=== PATIENT | female | born 1970 | race Caucasian/White ===

== ENCOUNTER → 2018-05-17 | Emergency (ER) | payer OTHER ==
[~2018-05-17] VITALS: Ht 154.9 cm; Wt 54.4 kg
[~2018-05-17] MED LIST: CEPHALEXIN500 MG PO; KEFLEX500 MG PO; NORCO 5-325 TA1 EACH PO; ZOFRAN ODT4 MG PO
--- OUTSIDE RECORDS SUMMARY | ~2018-05-17 | XMS | Clinical Summary ---
Demographics + + + | Address | [address] | | | [place] [address] | + + + | Home Phone | | + + + | Preferred Language | Unknown | + + + | Marital Status | | + + + | Catholic Affiliation | Unknown | + + + | Race | Unknown | + + + | Ethnic Group | Unknown | + + + Author + + + | Author | [facility] | | | and [place] | + + + | Organization | [facility] | | | and [place] | + + + | Address | Unknown | + + + | Phone | Unavailable | + + + Support + + + + + | Name | Relationship | Address | Phone | + + + + + | Rambo Garza | ECON | [address] | | | | | [place] | | | | | [address] | | + + + + + Care Team Providers + +------+ + | Care Tag Marker Name | Role | Phone | + +------+ + | Don Chau [employer]IDENT [employer] | PP | | + +------+ + Allergies + + + +--------+ + | Active Allergy | Reactions | Severity | Noted | Comments | | | | | Date | | + + + +--------+ + | Doxycycline | Sensitivity | High | | Rash from sun | | | | | | exposure | + + + +--------+ + Current Medications + + +--------+---------+------+------+-------+ | Prescription | Sig. | Disp. | Refills | Star | End | Statu | | | | | | t | Date | s | | | | | | Date | | | + + +--------+---------+------+------+-------+ | triamcinolone | APPLY TO AFFECTED | 30 g | 0 | 06/3 | | Activ | | (KENALOG) 0.1% cream | AREAS OF SKIN THREE | | | 0/20 | | e | | | TIMES DAILY FOR | | | 16 | | | | | ITCHING OR | | | | | | | | INFLAMMATION | | | | | | + + +--------+---------+------+------+-------+ | | Take 1 tablet by | 30 | 0 | 10/1 | | Activ | | butalbital-acetamino | mouth every 6 hours | tablet | | 2/20 | | e | | phen-caffeine | as needed for | | | 17 | | | | (ESGIC) 50-325-40 mg | Headaches. | | | | | | | per tablet | | | | | | | + + +--------+---------+------+------+-------+ | ondansetron | Take 1 tablet by | 30 | 0 | 10/1 | | Activ | | (ZOFRAN ODT) 4 mg | mouth every 8 hours | tablet | | 2/20 | | e | | disintegrating | as needed. | | | 17 | | | | tablet | | | | | | | + + +--------+---------+------+------+-------+ | omeprazole | Take 20 mg by mouth | | | 11/2 | | Activ | | (PRILOSEC) 20 mg | every morning | | | 2/20 | | e | | capsule | (before breakfast). | | | 17 | | | + + +--------+---------+------+------+-------+ | fluticasone | 2 sprays by Nasal | 1 g | 1 | 08/3 | | Activ | | (FLONASE) 50 | route Daily. | | | 1/20 | | e | | mcg/nasal spray | | | | 18 | | | + + +--------+---------+------+------+-------+ Active Problems + + + | Problem | Noted Date | + + + | Gastroesophageal reflux disease | 05/30/2017 | + + + | History of opioid abuse | 05/30/2017 | + + + + + | Overview: Overview: Currently [facility] | | Dr. 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 | | + + + | Vitamin D deficiency | | + + + Encounters +--------+ + + + + | Date | Type | Specialty | Care Team | Description | +--------+ + + + + | 03/11/ | Telephone | | Linh Edwards | Results | | 2017 | | | [facility] | | +--------+ + + + + | 03/08/ | Office | | Pat Duong | Viral illness | | 2017 | Visit | | [facility] | (Primary Dx); | | | | | | Pharyngitis, | | | | | | unspecified | | | | | | etiology; Sore | | | | | | throat | +--------+ + + + + from Last 3 Months Immunizations + + + + | Name | Dates Previously Given | Next Due | + + + + | INFLUENZA PF 4Y OR | 04/27/2016, 05/12/2015 | | | >,QUAD DERIVED FROM | | | | TISS-CULT | | | + + + + | TDAP, (ADOL/ADULT) | 11/24/2011 | | + + + + Family History + + +------+ + | Medical History | Relation | Name | Comments | + + +------+ + | High blood pressure | Father | | | + + +------+ + | High blood pressure | Mother | | | + + +------+ + + +------+--------+ + | Relation | Name | Status | Comments | + +------+--------+ + | Father | | | | + +------+--------+ + | Mother | | | | + +------+--------+ + Social History + + + +--------+ + | Tobacco Use | Types | Packs/Day | Years | Date | | | | | Used | | + + + +--------+ + | Current Every Day | Cigarettes | 0.2 | | Started: 1986 | | Smoker | | | | | + + + +--------+ + + +---+---+---+ | Smokeless Tobacco: | | | | | Never Used | | | | + +---+---+---+ + + | Tobacco Cessation: Ready to Quit: No; Counseling Given: No | | Comments: Smokes 2-3 cigarrettes per day | + + + + +---------+ + | Alcohol Use | Drinks/We | oz/Week | Comments | | | ek | | | + + +---------+ + | Yes | 0 | 0.0 | 1-2 times per year | | | Standard | | | | | drinks or | | | | | | | | | | equivalen | | | | | t | | | + + +---------+ + + + + | Sex Assigned at | Date Recorded | | | | + + + | Not on file | | + + + Last Filed Vital Signs + + + + | Vital Sign | Reading | Time Taken | + + + + | Blood Pressure | 110/70 | 03/08/20181739 PDT | + + + + | Pulse | 66 | 03/08/20181739 PDT | + + + + | Temperature | 36.9 C (98.4 F) | 03/08/20181739 PDT | + + + + | Respiratory Rate | 16 | 03/08/20181739 PDT | + + + + | Oxygen Saturation | 97% | 03/08/20181739 PDT | + + + + | Inhaled Oxygen | - | - | | Concentration | | | + + + + | Weight | 53.5 kg (118 lb) | 03/08/20181739 PDT | + + + + | Height | 154.9 cm (5' 1") | 03/08/20181739 PDT | + + + + | Body Mass Index | 22.3 | 03/08/20181739 PDT | + + + + Plan of Treatment + + + + + | Health Maintenance | Due Date | Last Done | Comments | + + + + + | Vaccine: | | | | | Pneumococcal 19- | 0 | | | | (PPSV23 only) Medium | | | | | Risk (1 of 1 - | | | | | PPSV23) | | | | + + + + + | Cervical Cancer | | | | | Screening (Pap) | 1 | | | + + + + + | Vaccine: Influenza | | 04/27/2016, 05/12/2015 | | | (#1) | 8 | | | + + + + + | Vaccine: | | 11/24/2011 | | | Dtap/Tdap/Td (2 - | 2 | | | | Td) | | | | + + + + + Procedures + +--------+ + + + | Procedure Name | Priori | Date/Time | Associated Diagnosis | Comments | | | ty | | | | + +--------+ + + + | POCT STREPTOCOCCUS A | Routin | 03/08/2018 | Sore throat | Results for this | | NAAT | e | 1807 PDT | | procedure are in the | | | | | | results section. | + +--------+ + + + | CULTURE, STREP A, | Routin | 03/08/2018 | Pharyngitis, | Results for this | | THROAT | e | 1740 PDT | unspecified etiology | procedure are in the | | | | | | results section. | + +--------+ + + + from Last 3 Months Results POCT Streptococcus A NAAT (03/08/2018 1807) + + + + + | Component | Value | Ref Range | Performed At | + + + + + | Group A Strep, DNA | Negative | Negative | | | POC | | | | + + + + + | Internal QC | Acceptable | Acceptable | | + + + + + | CULTURE SENT TO LAB | Yes | | | + + + + + Culture, Strep A, Throat (03/08/2018 1740) + + + + + | Component | Value | Ref Range | Performed At | + + + + + | Culture | No Group A Streptococcus | | [facility] | | | isolated | | [facility] | | | | | CENTER - | | | | | LABORATORY | + + + + + + + | Specimen | + + | Tissue - Oropharynx | + + + + + + + | Performing | Address | City/State/Zipcode | Phone Number | | Organization | | | | + + + + + | [facility] | [address] | [place] | [phone] | | [facility] | | [address] | | | - LABORATORY | | | | + + + + + | [facility] | [address] | [place] | | | [facility] | | [address] | | | - LABORATORY | | | | + + + + + from Last 3 Months Insurance + +--------+ +--------+ +---------+ | Payer | Benefi | Subscriber | Type | Phone | Address | | | t Plan | ID | | | | | | / | | | | | | | Group | | | | | + +--------+ +--------+ +---------+ | [employer] | MODA | [id number] | Medica | +- | | | MEDICAID HMO | HEALTH | | id | 9821 | | | | [place] | | | | | | [place] | | | | | + +--------+ +--------+ +---------+ + +--------+ +--------+ + + | Guarantor Name | Accoun | Relation to | Date | Phone | Billing Address | | | t Type | Patient | of | | | | | | | | | | + +--------+ +--------+ + + | MITZI EAGLE | Person | Self [birth year] Home: | [address] | | [place] | al/Fam | | 1969 | [phone] | [place] | | | lisa | | | [phone] | [phone] | + +--------+ +--------+ + +
--- OUTSIDE RECORDS SUMMARY | ~2018-05-17 | XMS | Encounter Summary ---
Demographics + + + | Address | [address] | | | [place] [address] | + + + | Home Phone | | + + + | Preferred Language | Unknown | + + + | Marital Status | | + + + | Alevism Affiliation | Unknown | + + + | Race | Unknown | + + + | Ethnic Group | Unknown | + + + Author + + + | Author | [facility] | | | and [place] | + + + | Organization | [facility] | | | and [place] | + + + | Address | Unknown | + + + | Phone | Unavailable | + + + Support + + + + + | Name | Relationship | Address | Phone | + + + + + | Rambo Garza | ECON | [address] | | | | | [place] | | | | | [address] | | + + + + + Care Team Providers + +------+ + | Care Testing Machine Operator Name | Role | Phone | + +------+ + | Don Chau GEOSPATIAL INFORMATION SCIENTIST | PCP | | + +------+ + Reason for Visit +--------+ + | Reason | Comments | +--------+ + | URI | x 5 days; associated with purulent phlegm/pnd, sore throat | +--------+ + Encounter Details +--------+---------+ + + + | Date | Type | Department | Care Team | Description | +--------+---------+ + + + | 03/08/ | Office | [facility] | Pat Duong | Viral illness | | 2017 | Visit | [address] | [facility] [address] | (Primary Dx); | | | | [facility] | [place] | Pharyngitis, | | | | [address] | [place] [address] | unspecified | | | | [place] [address] | [phone] | etiology; Sore | | | | [phone] | | throat | +--------+---------+ + + + Social History + + + +--------+ + | Tobacco Use | Types | Packs/Day | Years | Date | | | | | Used | | + + + +--------+ + | Current Every Day | Cigarettes | 0.2 | | Started: 1987 | | Smoker | | | | [...] on file | | + + + as of this encounter Last Filed Vital Signs + + + [...] Height | 154.9 cm (5' 1") | 03/08/2018 174 PDT | + + + + | Body Mass Index | 22.3 | 03/08/20181739 PDT | + + + + in this encounter Instructions Patient Instructions - Pat Duong, [facility] - 03/08/2018 1814 PDT Pharyngitis (Sore Throat), Report Pending Pharyngitis (sore throat) is often due to a virus. It can also be caused by streptococcus ( strep), bacteria. This is often called strep throat. Both viral and strep infectionscan ca use throat pain that is worse when swallowing, aching all over, headache,and fever. Both t ypes of infections are contagious. They may be spread by coughing, kissing,or touching oth ers after touching your mouth or nose. A test has been done to find out ifyou or your child have strep throat. Call this facilit y or your healthcare provider if you were not given your test results. If the test isposit ivefor strep infection, you will need to takeantibiotic medicines. A prescription can be called into your pharmacy at that time. If the test isnegative,you probably have a caren l pharyngitis. Thisdoes notneed to be treated with antibiotics.Until you receive the r esults of the strep test, you should stay home from work. If your child is being tested, he or she should stay home from school. Home care Rest at home. Drink plenty of fluids so you won't get dehydrated. If the test is positive for strep, you or your child should not go towork or school fo r the first 2 days of taking the antibiotics. After this time, you or your child will not be contagious. You or your child can then return to work or school when feeling better. Use the antibiotic medicinefor the full 10 days. Do not stop the medicine even if you or your child feel better. This is very important to make sure the infection is fully treate d. It is also important to prevent medicine-resistant germs from growing.If you or your ch ild were given an antibiotic shot, nomore antibiotics are needed. Use throat lozenges or numbing throat sprays to help reduce pain. Gargling with warm marie t water will also help reduce throat pain. Dissolve 1/2 teaspoon of salt in 1 glass of warm water. Children can sip on juice or a popsicle. Children 5 years and older can also suck on a lollipop or hard candy. Don't eat salty or spicy foods or give them to your child. These can irritate the throat . Other medicine for a child: You can give your child acetaminophen for fever, fussiness, or discomfort. In babies over 6 months of age, you may use ibuprofen instead of acetaminophen. If your child has chronic liver or kidney disease or ever had a stomach ulcer or GI bleeding , talk with your child s healthcare provider before giving these medicines. Aspirin should never be used by any child under 18 years of age who has a fever. It may cause severe liver damage. Other medicine for an adult: You may use acetaminophen or ibuprofen to control pain or feve r, unless another medicine was prescribed for this. If you have chronic liver or kidney dise ase or ever had a stomach ulcer or GI bleeding, talk with your healthcare provider before us ing these medicines. Follow-up care Follow up with your healthcare provider or our staff if you or your child don't get better over the next week. When to seek medical advice Call your healthcare provider right away if any of these occur: Feveras directed by your healthcare provider. For children, seek care if: Your child is of any age and has repeated fevers above 104F (40C). Your child is younger than 2 years of age and has a fever of 100.4F (38C) for more t dc 1 day. Your child is 2 years old or older and has a fever of 100.4F (38C) for more than 3 d ays. New or worsening ear pain, sinus pain, or headache Painful lumps in the back of neck Stiff neck Lymph nodes are getting larger Can t swallow liquids, a lot of drooling, or can t open mouth wide due to throat pain Signs of dehydration, such as very dark urine or no urine, sunken eyes, dizziness Trouble breathing or noisy breathing Muffled voice New rash Other symptoms getting worse Prevention Here are steps you can take to help prevent an infection: Keep good hand washing habits. Don t have close contact with people who have sore throats, colds, or other upper resp iratory infections. Don t smoke, and stay away from secondhand smoke. Stay up to date with of your vaccines. Date Last Reviewed: 05/09/201719996300-5451 [employer] [address] [place] [address]. All righ ts reserved. This information is not intended as a substitute for professional medical care. Always follow your healthcare professional's instructions. Viral Upper Respiratory Illness (Adult) You have a viral upper respiratory illness (URI), which is another term for the common cold . This illness is contagious during the first few days. It is spread through the air by coug eloisa and sneezing. It may also be spread by direct contact (touching the sick person and the n touching your own eyes, nose, or mouth). Frequent handwashing will decrease risk of spread . Most viral illnesses go away within 7 to 10 days with rest and simple home remedies. Somet imes the illness may last for several weeks. Antibiotics will not kill a virus, and they are generally not prescribed for this condition. Home care If symptoms are severe, rest at home for the first 2 to 3 days. When you resume activity , don't let yourself get too tired. Avoid being exposed to cigarette smoke (yours or others ). You may use acetaminophen or ibuprofen to control pain and fever, unless another medicin e was prescribed.If you have chronic liver or kidney disease, have ever had a stomach ulce r or gastrointestinal bleeding, or are taking blood-thinning medicines, talk with your healt hcare provider before using these medicines. Aspirin should never be given to anyone under 1 8 years of age who is ill with a viral infection or fever. It may cause severe liver or brai n damage. Your appetite may be poor, so a light diet is fine. Avoid dehydration by drinking 6 to 8 glasses of fluids per day (water, soft drinks, juices, tea, or soup). Extra fluids will hel p loosen secretions in the nose and lungs. Wjxh-rxf-xtvqgpv cold medicines will not shorten the length of time you re sick, but t hey may be helpful for the following symptoms: cough, sore throat, and nasal and sinus conge stion. (Note: Do not use decongestants if you have high blood pressure.) Follow-up care Follow up with your healthcare provider, or as advised. When to seek medical advice Call your healthcare provider right away if any of these occur: Cough with lots of colored sputum (mucus) Severe headache; face, neck, or ear pain Difficultyswallowingdue to throat pain Fever of 100.4F (38C) or higher, or as directed by your healthcare provider Call 911 Call 911 if any of these occur: Chest pain, shortness of breath, wheezing, or difficulty breathing Coughing up blood Inability to swallow due to throat pain Date Last Reviewed: 03/21/201519999846-1189 [employer] [address] [place] [address]. All righ ts reserved. This information is not intended as a substitute for professional medical care. Always follow your healthcare professional's instructions. in this encounter Progress Notes Pat Duong ARNP - 03/08/2018 5850 PDTFormatting of this note may be different from the original. Subjective: Irina Stewart Emile is a 48 y.o. female who presents to the clinic with a compla int of URI (x 5 days; associated with purulent phlegm/pnd, sore throat) URI This is a new problem. The current episode started in the past 7 days. The problem has been gradually worsening. There has been no fever. Associated symptoms include congestion, cough ing, headaches, nausea, a plugged ear sensation, rhinorrhea, sinus pain, a sore throat and s wollen glands. Pertinent negatives include no ear pain, sneezing, vomiting or wheezing. She has tried nothing for the symptoms. Allergies Allergen Reactions Doxycycline Sensitivity Rash from sun exposure Medications: Patient Reported Taking Dosage sampbhkoty-yhatglplgoafc-eldluvwl (ESGIC) 50-325-40 mg per tablet (Taking) Take 1 tablet by mouth every 6 hours as needed for Headaches. Number of times this order has been changed since signin Order [facility] [place] omeprazole (PRILOSEC) 20 mg capsule (Taking) Take 20 mg by mouth every morning (before br eakfast). Number of times this order has been changed since signin [facility] [place] ondansetron (ZOFRAN ODT) 4 mg disintegrating tablet (Taking) Take 1 tablet by mouth every 8 hours as needed. Number of times this order has been changed since signin [facility] [place] SUMAtriptan (IMITREX) 50 mg tablet (Taking/Discontinued) Take 50 mg by mouth. 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 Past Surgical History She has a past surgical history that includes Cholecystectomy, laparoscopic (04/26/2015); T ubal ligation (01/28/2008); Laparoscopic cholecystectomy and cholangiogram (04/26/2015); reggie arean section (01/28/2008); section (04/08/2006); section (05/09/2002); an d section (09/07/1999). Social History Substance Use Topics Smoking status: Current Every Day Smoker Packs/day: 0.20 Types: Cigarettes Start date: 1986 Smokeless tobacco: Never Used Comment: Smokes 2-3 cigarrettes per day Alcohol use 0.0 oz/week Comment: 1-2 times per year Review of Systems Constitutional: Positive for appetite change and fatigue. Negative for fever. HENT: Positive for congestion, postnasal drip, rhinorrhea, sinus pain, sore throat and voic e change. Negative for ear pain, sneezing and trouble swallowing. Eyes: Negative for photophobia, discharge, redness and itching. Respiratory: Positive for cough, chest tightness and shortness of breath. Negative for whee zing. Gastrointestinal: Positive for nausea. Negative for vomiting. Neurological: Positive for headaches. See HPI Objective: Vitals: 03/08/18 1740 BP: 110/70 Pulse: 66 Resp: 16 Temp: 36.9 C (98.4 F) TempSrc: Oral SpO2: 97% Weight: 53.5 kg (118 lb) Height: 1.549 m (5' 1") No LMP recorded. Patient is perimenopausal. Physical Exam Constitutional: She is oriented to person, place, and time. Vital signs are normal. She leighotn ears well-developed and well-nourished. She is cooperative. She does not appear ill. No dist ress. HENT: Head: Normocephalic and atraumatic. Right Ear: Hearing, tympanic membrane, external ear and ear canal normal. Left Ear: Hearing, tympanic membrane, external ear and ear canal normal. Nose: Nose normal. No mucosal edema or rhinorrhea. Right sinus exhibits no frontal sinus te nderness. Left sinus exhibits no frontal sinus tenderness. Mouth/Throat: Uvula is midline and mucous membranes are normal. Posterior oropharyngeal prem thema present. No oropharyngeal exudate. Eyes: Pupils are equal, round, and reactive to light. Conjunctivae and lids are normal. Neck: Neck supple. Cardiovascular: Normal rate, regular rhythm and normal heart sounds. Pulmonary/Chest: Effort normal and breath sounds normal. No stridor. No respiratory distres s. She has no wheezes. Lymphadenopathy: She has no cervical adenopathy. Neurological: She is alert and oriented to person, place, and time. Skin: Skin is warm and dry. No rash noted. Psychiatric: She has a normal mood and affect. Her behavior is normal. Nursing note and vitals reviewed. Recent Results (from the past 24 hour(s)) POCT Streptococcus A NAAT Result Value Ref Range Group A Strep, DNA POC Negative Negative Internal QC Acceptable Acceptable CULTURE SENT TO LAB Assessment: 1. Viral illness 2. Pharyngitis, unspecified etiology 3. Sore throat POCT Streptococcus A NAAT Plan: 1. Viral illness 2. Pharyngitis, unspecified etiology 3. Sore throat - POCT Streptococcus A NAAT . Throat ulture sent. Pt instructed that she has a viral illness. We will notify her if the t hroat culture is positive. Also, she may call and request an antibiotic should she have wors ening symptoms. This would correlate with a positive throat culture result., See AVS for patient instructions. Diagnosis and plan including medications and side effects were discussed with the patient a nd information handout was given. Patient voices understanding of the plan and all questions were answered. Return in about 2 years (around 03/08/2020), or if symptoms worsen or fail to improve. in th is encounter Plan of Treatment Not on fileas of this encounter Procedures + +--------+ + + + | [...] section. | + +--------+ + + + in this encounter Results POCT Streptococcus A NAAT (03/08/2018 1807) [...] | No Group A Streptococcus | | [facility] | | | isolated | | [facility] | [facility] | | | [facility] - [...] + | [facility] | [address] | [place] | [phone] | | [facility] | | [address] | | | - LABORATORY | | | | + + + + + | [facility] | [address] | [place], [place] | | | [facility] | | [address] | | | - LABORATORY | | | | + + + + + in this encounter Visit Diagnoses + + | Diagnosis | + + | Viral illness - Primary | + + | Unspecified viral infection, in conditions classified elsewhere and of unspecified | | site | + + | Pharyngitis, unspecified etiology | + + | Sore throat | + + | Acute pharyngitis | + +
--- OUTSIDE RECORDS SUMMARY | ~2018-05-17 | XMS | Clinical Summary ---
Demographics + + + | Address | [address] | | | [place] [address] | + + + | Home Phone | | + + + | Preferred Language | Unknown | + + + | Marital Status | | + + + | Faith Affiliation | Unknown | + + + | Race | Unknown | + + + | Ethnic Group | Unknown | + + + Author + + + | Author | [facility] | | | and [place] | + + + | Organization | [facility] | | | and [place] | + + + | Address | Unknown | + + + | Phone | Unavailable | + + + Support + + + + + | Name | Relationship | Address | Phone | + + + + + | Rambo Garza | ECON | [address] | | | | | [place] | | | | | [address] | | + + + + + Care Team Providers + +------+ + | Care Booking Clerk Name | Role | Phone | + +------+ + | Don Chau HYDROLOGY TEACHER | PP | | + +------+ + [...] ST. | | | isolated | | [facility] | | | | | CENTER - [...] [address] | [facility] [place] | [phone] | | [facility] | | [address] | | | - LABORATORY | | | | + + + + + | [facility] | [address] | [place] | | | [facility] | | [address] | | | - LABORATORY | | [...] | [employer] | MODA | [id number] | Medica | +- | | | [...] | Self [birth year] | Home: | [address] | | [place] | al/Fam | | 1969 | [phone] [place] | | | lisa | | | [phone] | [phone] | + +--------+ +--------+ + +
--- OUTSIDE RECORDS SUMMARY | ~2018-05-17 | XMS | Encounter Summary ---
Demographics + + + | Address | [address] [facility] [address] | | | [place] [address] | + + + | Home Phone | | + + + | Preferred Language | Unknown | + + + | Marital Status | | + + + | Jew Affiliation | Unknown | + + + | Race | Unknown | + + + | Ethnic Group | Unknown | + + + Author + + + | Author | [facility] | | | and [place] | + + + | Organization | [facility] | | | and [place] | + + + | Address | Unknown | + + + | Phone | Unavailable | + + + Support + + + + + | Name | Relationship | Address | Phone | + + + + + | Rambo Garza | ECON | [id number] | | | | | [place] | | | | | [address] | | + + + + + Care Team Providers + +------+ + | Care [employer] Fitness Instructor Name | Role | Phone | + +------+ + | Don Chau DRUG INSPECTOR | PCP | | + +------+ + Reason for Visit +---------+ + | Reason | Comments | +---------+ + | Results | | +---------+ + Encounter Details +--------+ + + + + | Date | Type | Department | Care Team | Description | +--------+ + + + + | 03/11/ | Telephone | [facility] | Blood, Linh | Results | | 2018 | | [address] | [address] | | | | | [address] | [address] | | | | | [address] [facility] | [place] [address] | | | | | [place] [address] | [phone] | | | | | [phone] | | | +--------+ + + + + Social History + + [...] | | + +---+---+---+ + + | Comments: Smokes 2-3 cigarrettes per day [...] + + + as of this encounter Plan of Treatment Not on fileas of this encounter Visit Diagnoses Not on filein this encounter"
--- OUTSIDE RECORDS SUMMARY | ~2018-05-17 | XMS | Encounter Summary ---
Demographics + + + | Address | [address] | | | [place] [address] | + + + | Home Phone | | + + + | Preferred Language | Unknown | + + + | Marital Status | | + + + | Caodaism Affiliation | Unknown | + + + | Race | Unknown | + + + | Ethnic Group | Unknown | + + + Author + + + | Author | [facility] | | | and [place] | + + + | Organization | [facility] | | | and [place] | + + + | Address | Unknown | + + + | Phone | Unavailable | + + + Support + + + + + | Name | Relationship | Address | Phone | + + + + + | Rambo Garza | ECON | [address] | | | | | [place] | | | | | [address] | | + + + + + Care Team Providers + +------+ + | Care Clinical Material Handler Name | Role | Phone | + +------+ + | Don Chau COMMISSIONING SPECIALIST | PCP | | + +------+ + Reason for Visit +--------+ + | Reason | Comments | +--------+ + | URI | x 5 days; associated with purulent phlegm/pnd, sore throat | +--------+ + Encounter Details +--------+---------+ + + + | Date | Type | Department | Care Team | Description | +--------+---------+ + + + | 03/08/ | Office | [facility] | Pat Duong | Viral illness | | 2017 | Visit | [address] | [address] | (Primary Dx); | | | | [address] | [address] | Pharyngitis, | | | | [address] | [place] [address] | unspecified | | | | [place] [address] | [phone] | etiology; Sore | | | | [phone] | | throat | +--------+---------+ + + [...] encounter Instructions Patient Instructions - Pat Duong, [facility] - 03/08/2018 1814 PDT Pharyngitis (Sore [...] with of your vaccines. Date Last Reviewed: 05/09/201719996886-3725 [employer]. [address] [place] [address]. All righ ts reserved. This information is [...] loosen secretions in the nose and lungs. Zagt-coo-ssyiurv cold medicines will not shorten the length [...] due to throat pain Date Last Reviewed: 03/21/201519997411-7621 [employer]. [address] [place] [address]. All righ ts reserved. This information is not intended as a substitute for professional medical care. Always follow your healthcare professional's instructions. in this encounter Progress Notes Pat Duong ARNP - 03/08/2018 0000 PDTFormatting of this note may be different [...] sun exposure Medications: Patient Reported Taking Dosage jqguxfbbut-psbrvogwxaziv-tpvcivmc (ESGIC) 50-325-40 mg per tablet (Taking) Take 1 tablet by mouth every 6 hours as needed for Headaches. Number of times this order has been changed since signin [facility] [place] omeprazole (PRILOSEC) 20 mg capsule (Taking) Take 20 mg by mouth every morning (before br eakfast). Number of times this order has been changed since signin [facility] [place] ondansetron (ZOFRAN ODT) 4 mg disintegrating tablet (Taking) Take 1 tablet by mouth every 8 hours as needed. Number of times this order has been changed since signin [facility] SUMAtriptan (IMITREX) 50 mg tablet (Taking/Discontinued) Take [...] and time. Vital signs are normal. She leighton ears well-developed and well-nourished. She is cooperative. [...] + | [facility] | [address] | [place] | [phone] | | [facility] | | [address] | | | - LABORATORY | | | | + + + + + | [facility] | [address] | [place], [place] | | | [facility] | | [address] | | | - LABORATORY | | [...]
--- OUTSIDE RECORDS SUMMARY | ~2018-05-17 | XMS | Encounter Summary ---
Demographics + + + | Address | [address] | | | [place] [address] | + + + | Home Phone | | + + + | Preferred Language | Unknown | + + + | Marital Status | | + + + | Druze Affiliation | Unknown | + + + | Race | Unknown | + + + | Ethnic Group | Unknown | + + + Author + + + | Author | [facility] | | | and [place] | + + + | Organization | [facility] | | | and [place] | + + + | Address | Unknown | + + + | Phone | Unavailable | + + + Support + + + + + | Name | Relationship | Address | Phone | + + + + + | Rambo Garza | ECON | [id number] | | | | | [place] | | | | | [address] | | + + + + + Care Team Providers + +------+ + | Care Assistant Professor Of Marine Biology Name | Role | Phone | + +------+ + | Don Chau MANAGER HEMATOLOGY | PCP | | + +------+ + [...] | Results | | 2018 | | [address] | [address] | | | | | [address] | [address] | | | | | [address] [facility] | [place] [address] | | | | | [place] [address] | [phone] | | | | | [phone] | | | +--------+ + + + [...]
== END ==
LOC: ED 00:06
DX: N39.0 Urinary tract infection, site not specified (principal); G43.909 Migraine, unspecified, not intractable, without status migrainosus; Z87.891 Personal history of nicotine dependence
CPT/HCPCS: 81001; 84703; 87077; 87088; 87186; 99284

== ENCOUNTER 2018-10-18 17:54 | Emergency (ER) | payer OTHER ==
[~2018-10-18] VITALS: Ht 154.9 cm; Wt 54.4 kg
--- OUTSIDE RECORDS SUMMARY | ~2018-10-18 | XMS | Clinical Summary ---
Demographics + + + | Address | [address] | | | [place] [address] | + + + | Home Phone | | + + + | Preferred Language | Unknown | + + + | Marital Status | | + + + | Rastafari Affiliation | Unknown | + + + | Race | Unknown | + + + | Ethnic Group | Unknown | + + + Author + + + | Author | [facility] | | | and [place] | + + + | Organization | [facility] | | | and [place] | + + + | Address | Unknown | + + + | Phone | Unavailable | + + + Support + + + + + | Name | Relationship | Address | Phone | + + + + + | Rambo Garza | ECON | [address] | | | | | [place] | | | | | [address] | | + + + + + Care Team Providers + +------+ + | Care Lead Pastor Name | Role | Phone | + +------+ + | Don Chau HOME CARE RN | PP | | + +------+ + Allergies + + + +--------+ + | Active Allergy | Reactions | Severity | Noted | Comments | | | | | Date | | + + + +--------+ + | Doxycycline | Sensitivity | High | | Rash from sun | | | | | | exposure | + + + +--------+ + Medications + + + +---------+------+------+-------+ | Medication | Sig | Dispensed | Refills | Star | End | Statu | | | | | | t | Date | s | | | | | | Date | | | + + + +---------+------+------+-------+ | triamcinolone | APPLY TO AFFECTED | [...] | | | | + + + +---------+------+------+-------+ | | Take 1 tablet by | [...] | | | | + + + +---------+------+------+-------+ | ondansetron | Take 1 tablet by | 30 | 0 | 10/1 | | Activ | | (ZOFRAN ODT) 4 mg | mouth every 8 hours | tablet | | 2/20 | | e | | disintegrating | as needed. | | | 17 | | | | tablet | | | | | | | + + + +---------+------+------+-------+ | omeprazole | Take 20 mg by mouth | | 0 | 11/2 | | Activ | | (PRILOSEC) 20 mg | every morning | | | 2/20 | | e | | capsule | (before breakfast). | | | 17 | | | + + + +---------+------+------+-------+ | fluticasone | 2 sprays by Nasal | 1 g | 1 | 08/3 | | Activ | | (FLONASE) 50 | route Daily. | | | 07/28 | | e | | mcg/nasal spray | | | | 18 | | | + + + +---------+------+------+-------+ Active Problems + + + | Problem [...] D deficiency | | + + + Immunizations + + + + | Name [...] on file | | + + + + + + + | Job Start Date | Occupation | Industry | + + + + | Not on file | Not on file | Not on file | + + + + + + + + | Travel History | Travel Start | Travel End | + + + + + + | No recent travel history available. | + + Last Filed Vital Signs + [...] Vaccine: | | | | | Pneumococcal 19-64 | 0 | | | | (PPSV23 [...] | | 04/27/2016, 05/12/2015 | | | (Season Ended) | 9 | | | + + + + + | Vaccine: | | 11/24/2011 | | | Dtap/Tdap/Td (2 - | 2 | | | | Td) | | | | + + + + + Results Not on filefrom Last 3 Months Insurance + +--------+ +--------+ +---------+--------+ | Payer | Benefi | Subscriber | Effect | Phone | Address | Type | | | t Plan | ID | maris | | | | | | / | | Dates | | | | | | Group | | | | | | + +--------+ +--------+ +---------+--------+ | [employer] | [employer] | [id number] | 04/19/ | [phone] | | Medica | | MEDICAID HMO | HEALTH | | 2017-P | 1 | | id | | | MDCD | | resent | | | | | | [place] | | | | | | + +--------+ +--------+ +---------+--------+ + +--------+ +--------+ + + | Guarantor Name | Accoun | Relation to | Date | Phone | Billing Address | | | t Type | Patient | of | | | | | | | | | | + +--------+ +--------+ + + | Nahid Baptiste | Person | Self [birth year] | [address] | | [place] | al/Fam | | 1970 | [phone] | [place], [place] | | | lisa | | | 0 (Home) | [address] | + +--------+ +--------+ + + Advance Directives Patient has advance care planning documents on file. For more information, please contact:[facility] [place] [address]
--- OUTSIDE RECORDS SUMMARY | ~2018-10-18 | XMS | Clinical Summary ---
Demographics + + + | Address | [address] | | | [place] [address] | + + + | Home Phone | | + + + | Preferred Language | Unknown | + + + | Marital Status | | + + + | Sabianism Affiliation | Unknown | + + + | Race | Unknown | + + + | Ethnic Group | Unknown | + + + Author + + + | Author | [facility] | | | and [place] | + + + | Organization | [facility] | | | and [place] | + + + | Address | Unknown | + + + | Phone | Unavailable | + + + Support + + + + + | Name | Relationship | Address | Phone | + + + + + | Rambo Garza | ECON | [address] | | | | | [place] | | | | | [address] | | + + + + + Care Team Providers + +------+ + | Care Production Helper Name | Role | Phone | + +------+ + | Don Chau FINANCIAL ASSISTANCE SPECIALIST | PP | | + +------+ + [...] | [employer] | MOD[employer] | [id number] | 04/19/ | [phone] | | Medica | | MEDICAID HMO [...] Person | Self [birth year] | [address] | | [place] | al/Fam | | 1970 | [phone] | [place], [place] | | | lisa | | | 0 (Home) | [address] | + +--------+ +--------+ + + Advance Directives Patient has advance care planning documents on file. For more information, please contact:[facility] [place] [address]
[2018-10-18] MEDS ORDERED: LYRICA150 MG PO (18:13)
[2018-10-18] MEDS ORDERED: FIORICET (18:22)
[2018-10-18] MEDS ORDERED: KEFLEX500 MG PO (19:13)
[2018-10-18] MEDS ORDERED: ZOFRAN4 MG PO (19:13)
== END 2018-10-18 19:48 | disposition home or self-care (01) ==
LOC: ED 17:54
DX: N39.0 Urinary tract infection, site not specified (principal); F17.200 Nicotine dependence, unspecified, uncomplicated; Z90.49 Acquired absence of other specified parts of digestive tract
CPT/HCPCS: 80053; 81001; 83690; 84703; 85025; 96361; 96365; 96375; 99284-25; J0696; J1885; J2405; J7030

== ENCOUNTER 2020-05-31 22:29 | Emergency (ER) | payer OTHER ==
[~2020-05-31] VITALS: Ht 154.9 cm; Wt 54.4 kg
[~2020-05-31 22:29] MED LIST changes: +FIORICET; +LYRICA150 MG PO; +ZOFRAN4 MG PO
== END 2020-06-01 00:50 | disposition home or self-care (01) ==
LOC: ED 22:29
DX: R10.31 Right lower quadrant pain (principal); G43.909 Migraine, unspecified, not intractable, without status migrainosus; F17.200 Nicotine dependence, unspecified, uncomplicated; Z79.899 Other long term (current) drug therapy
CPT/HCPCS: 51798; 74176; 80053; 81001; 83690; 84703; 85025; 99284-25; J1885